=== PATIENT | male | born 1955 ===

== ENCOUNTER 2020-12-31 22:01 | Inpatient (IN) ==
[2020-12-31] MEDS ORDERED: DEXAMETHASONE 10 MG/ML VIAL IV ONE (22:34)
[2020-12-31] MEDS ORDERED: REMDESIVIR 200 MG in 0.9 % SODIUM CHLORIDE 250 ML IV ONE (22:34)
[2020-12-31 22:47] LABS: POC Blood Urea Nitrogen 21 mg/dL (6-20); POC CO2 23 mmol/L (22-30); POC Calcium, Ionized 1.05 mmEq/L (1.16-1.32); POC Chloride 98 mEq/L (96-108); POC Glucose, Random 150 mg/dL (70-105); POC Hematocrit 39 % (41-55); POC Potassium 3.5 mEql/L (3.3-5.1); POC Sodium 134 mEq/L (133-145)
[2020-12-31 23:21] LABS: Basophils # (Auto) 0.01 K/mcL (0.00-0.30); Basophils % (Auto) 0.1 % (0.0-2.0); Eosinophils # (Auto) 0 K/mcL (0.00-0.70); Eosinophils % (Auto) 0 % (0.0-7.0); Hemoglobin 13.6 g/dL (13.7-17.5); Lymphocytes # (Auto) 0.86 K/mcL (1.50-4.80); Mean Cell Volume 91.7 fL (80.0-100.0); Mean Platelet Volume 10.3 fL (7.4-10.4); Monocytes # (Auto) 0.59 K/mcL (0.10-0.90); Neutrophils % (Auto) 82.7 % (38.0-78.0); Platelet Count 117 K/mcL (140-440); RBC 4.36 M/mcL (4.63-6.08); Red Cell Distribution Width 13.7 % (11.5-14.5); WBC 8.4 K/mcL (4.5-11.0)
[2020-12-31 23:43] LABS: Lymphocytes % (Auto) 10.2 % (15.5-49.0)
--- NOTE | 2021-01-01 02:05 | XRay Report ---
CLINICAL INFORMATION: SOB COMPARISON: 10/16/2013 FINDINGS: The heart is mildly enlarged. Mediastinum and pulmonary vasculature are unremarkable. Moderate vague alveolar infiltrates are seen diffusely throughout both mid and lower lungs-more prominent on the right. Tiny right pleural effusion noted IMPRESSION: Moderate vague alveolar infiltrates both mid and lower lungs more prominent on the right. Consider aspiration or infection. Interpreted and Authenticated by: Seth Moore 01/01/21
--- NOTE | 2021-01-01 02:45 | Emergency Department Note ---
HPI General Chief complaint: Shortness of Breath/Dyspnea Stated complaint: SOB, is COVID + Time Seen by Provider: 12/31/20 22:34 Mode of arrival: wheelchair Limitations: no limitations History of Present Illness HPI Narrative: Narrative: Patient is a 65-year-old male who presented with chief complaint of shortness of breath. Patient has been having worsening shortness of breath over the past 5 to 6 days, with cough as well as some body aches and chills. He does found out that his is Covid positive, so he is concerned for the same with him. He denies any known pulmonary issues for himself, and otherwise denies headache, neck stiffness, chest pain, abdominal pain, changes in bowel movements or urinary symptoms. Upon arrival to the emergency department patient had a pulse ox in the 60s, with significant increased work of breathing. Patient was placed on a nonrebreather which did bring up his oxygenation is into the mid 90s on 15 L however his work of breathing did not improve. At this point we elected to place him on BiPAP for respiratory support. Related Data Previous Rx's Medication Instructions Recorded efinaconazole 10 % topical 1 applic TOPICAL QHS #8 ml 11/26/16 solution with applicator cyclobenzaprine 10 mg tablet 10 mg PO TID #90 tab 03/17/17 oxycodone 30 mg tablet 30 mg PO TID PRN #84 tab 03/17/17 Allergies Allergy/AdvReac Type Severity Reaction Status Date / Time NKDA Allergy Mild NONE Uncoded 01/31/16 10:44 Review of Systems ROS ROS Narrative: Narrative: All systems ED: reviewed and negative except as stated. [facility] Narrative Patient History Narrative: Narrative: Medical/Surgical/Family History All Active Problems (Updated 01/01/21 @ 06:45 by Wojciech Lund DO) COVID-19 (Acute) Hypoxia (Acute) Acute respiratory distress (Acute) Mediastinal lymphadenopathy (Chronic) Dental abscess (Acute) Erectile disorder, acquired, generalized, severe (Acute) Hepatitis C, chronic (Chronic) Back pain (Chronic) Medical History Back pain chronic Back pain with radiation Bladder cancer Bladder tumor Dental abscess Erectile disorder, acquired, generalized, severe Hematuria, gross Hepatitis C, chronic Hernia, inguinal, unilateral Mediastinal lymphadenopathy Nocturia Prostate cancer Surgical History H/O cystoscopy (10/18/13) H/O total cystectomy (11/06/13) by Dr. Weston History of back surgery lower History of back surgery 1st surgery 07/2001 Low back surgery on above dates and a cage put around L4-L5 History of bladder surgery (10/18/13) Transurethral Resection; Bladder Tumor History of surgery (10/12/13) Cystourethroscopy History of surgery (11/06/13) Bilateral pelvic lymph node dissection by Dr. Weston Family History Unknown Family history of malignant neoplasm Social History Smoking Status: Current every day smoker Alcohol Intake Frequency: a few times a month Substance Use: marijuana and other Exam Narrative Narrative: Narrative: Patient is laying in bed, answering questions appropriat dayna. Patient does appear to feel unwell. He has significant respiratory distress, as well as conversational dyspnea. General Limitations: no limitations Head Head: Present atraumatic and normocephalic Eye Eye: Present normal appearance, PERRL and EOMI; Absent scleral icterus and conjunctival injection ENT ENT: Present normal oropharynx and mucous membranes moist Neck Neck: Present full ROM and trachea midline; Absent tenderness and lymphadenopathy Chest Chest: Present symmetric chest wall rise Respiratory Respiratory: Present respiratory distress, rales/crackles, wheezes, accessory muscle use and other (Tachypnea); Absent stridor Cardiovascular Cardiovascular: Present regular rate and normal rhythm; Absent systolic murmur and diastolic murmur Adbominal Abdominal: Present soft; Absent tenderness, guarding, rebound, rigidity and mass Extremities Extremities: Absent pedal edema, pretibial edema and calf tenderness Back Back: Absent CVA tenderness (R), CVA tenderness (L) and spinous process tenderness Neurological Neurological: Present alert and oriented X3 Psychiatric Psychiatric: Present normal affect and normal mood Skin Skin: Present warm (WNL) and dry Course Vital Signs Vital signs: Vital Signs Temperature 100.5 F H 12/31/20 22:02 Pulse Rate 84 12/31/20 22:02 Respiratory Rate 40 H 12/31/20 22:02 Blood Pressure 132/74 12/31/20 22:02 Pulse Oximetry (%) 68 L 12/31/20 22:02 Temperature 100.5 F H 12/31/20 22:20 Pulse Rate 46 L 01/01/21 06:39 Respiratory Rate 27 H 01/01/21 06:39 Blood Pressure 110/79 01/01/21 06:31 Pulse Oximetry (%) 98 01/01/21 06:39 MDM MDM Narrative Medical decision making narrative: Narrative: Patient is a 65-year-old male presented with chief complaint of shortness of breath. Patient was severely hypoxic upon arrival, with significant increased work of breathing. We did start the patient on nonrebreather which did improve his oxygenation but did not improve his respirations, and thus we transitioned him to BiPAP. This does seem to have helped his breathing, and while he is still having increased work of breathing overall is much improved. Patient states he feels better overall. X-ray was consistent with likely Covid pneumonia, and rest of blood work overall was unremarkable. Concerning a significant increase of oxygenation requirements, patient was given Decadron and remdesivir, and plan will be to transfer to a higher level care facility that has ICU/PCU availability. Patient is agreeable to the plan at this time and has no further concerns or questions. Unfortunately there has been no available beds within 100s of miles of our facility thus far. We are currently on the wait list at multiple locations in multiple states. We will continue to work on transfer the patient, and patient will be signed out to the day physician for monitoring until final disposition and transport can occur. Patient currently is stable on BiPAP, with overall improved symptoms. Lab Data Result diagrams: 12/31/20 22:34 Labs: Lab Results 12/31/20 12/31/20 Range/Units 22:34 22:34 WBC 8.4 (4.5-11.0) K/mcL RBC 4.36 L (4.63-6.08) M/mcL Hgb 13.6 L (13.7-17.5) g/dL Hct 40.0 L (40.1-51.0) % POC Hct 39 L (41-55) % MCV 91.7 (80.0-100.0) fL MCH 31.2 (26.0-34.0) pg MCHC 34.0 (31.0-36.0) g/dL RDW 13.7 (11.5-14.5) % Plt Count 117 L (140-440) K/mcL MPV 10.3 (7.4-10.4) fL Neut % (Auto) 82.7 H (38.0-78.0) % Lymph % (Auto) 10.2 L (15.5-49.0) % [place] % (Auto) 7.0 (1.0-12.0) % Eos % (Auto) 0 (0.0-7.0) % Baso % (Auto) 0.1 (0.0-2.0) % Lymph # (Auto) 0.86 L (1.50-4.80) K/mcL [place] # (Auto) 0.59 (0.10-0.90) K/mcL Eos # (Auto) 0 (0.00-0.70) K/mcL Baso # (Auto) 0.01 (0.00-0.30) K/mcL Absolute Neutrophils 6.98 (1.80-8.00) K/mcL POC Sodium 134 (133-145) mEq/L POC Potassium 3.5 (3.3-5.1) mEql/L POC Chloride 98 (96-108) mEq/L POC Total CO2 23 (22-30) mmol/L POC BUN 21 H (6-20) mg/dL POC Creatinine 1.0 (0.6-1.2) mg/dL POC Glucose 150 H (70-105) mg/dL POC WB Ioniz Calcium 1.05 L (1.16-1.32) mmEq/L ED POC Tests ED POC Tests: MARÍA - SARS Antigen Positive Procedures Other Procedure: EKG shows rate of approximately 80 with a bigeminy type pattern and right bundle branch block. No obvious signs of ischemia noted. No previous to compare to. 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
--- NOTE | 2021-01-01 11:32 | Internal Med History&Physical ---
HPI History of Present Illness Patient information: Note initiated : 01/01/21 at 11:27 am Service Date, if different from initiated Date: [] Patient: Padilla Walters a 65 y/o M admitted on for SOB, is COVID +. Chief Complaint: [CoVID pneumonia] History of present illness: Mr. Walters is a 65 year old M history of bladder cancer, presenting with 3-day history of shortness of breath, nonproductive cough, and general body weakness. There is no prior similar episode. He is not being vaccinated against Covid pneumonia. Over the past 3 days, patient experienced shortness of breath, nonproductive cough, and general body weakness. He denies any sputum productions or respiratory wheezing. He denies any fever, shaking chills, or diaphoresis. He denies any GI symptoms such as nausea vomiting diarrhea constipation's. He denies any change in his appetite. Vital signs at ED presentation significant for pericardia heart rate in the 50s, tachypnea with rate of breathing up to the 30s, and oxygen saturations in the mid 80s on room air. Lack of leukocytosis with WBC 8.4. Rest of the labs otherwise unremarkable. Covid positive. Chest x-ray findings typical for Covid pneumonia. Constitutional Constitutional: Present weakness; Absent chills, excessive sweating, fatigue and fever(s) EENT Eyes: Absent blurry vision, change in vision, loss of vision and other visual disturbances Ears: Absent decreased hearing and tinnitus Nose, mouth and throat: Absent abnormal hearing, dry mouth, headache(s), nasal congestion and sore throat Cardiovascular Cardiovascular: Absent chest pain, chest pain at rest, edema, irregular heart rhythm and palpatations Respiratory Respiratory: Present dyspnea; Absent cough and wheezing Gastrointestinal Gastrointestinal: Absent abdominal pain, constipation, diarrhea, nausea and vomiting Musculoskeletal Musculoskeletal: Absent back pain, deformity, limited range of motion, muscle cramps, muscle weakness and numbness Integumentary Integumentary: Absent lesions, rash and wounds Neurological Neurological: Absent focal weakness, headache(s) and numbness Psychiatric Psychiatric: Absent anxiety, depression and hallucinations PFSH PFSH All Active Problems (Updated 01/01/21 @ 11:31 by Bar Hay MD) Thrombocytopenia (Acute) Anemia, normocytic normochromic (Acute) COVID-19 (Acute) Hypoxia (Acute) Acute respiratory distress (Acute) Mediastinal lymphadenopathy (Chronic) Dental abscess (Acute) Erectile disorder, acquired, generalized, severe (Acute) Hepatitis C, chronic (Chronic) Back pain (Chronic) Medical History Back pain chronic Back pain with radiation Bladder cancer Bladder tumor Dental abscess Erectile disorder, acquired, generalized, severe Hematuria, gross Hepatitis C, chronic Hernia, inguinal, unilateral Mediastinal lymphadenopathy Nocturia Prostate cancer Surgical History H/O cystoscopy (10/18/13) H/O total cystectomy (11/06/13) by Dr. Weston History of back surgery lower History of back surgery 1st surgery 07/2001 Low back surgery on above dates and a cage put around L4-L5 History of bladder surgery (10/18/13) Transurethral Resection; Bladder Tumor History of surgery (10/12/13) Cystourethroscopy History of surgery (11/06/13) Bilateral pelvic lymph node dissection by Dr. Weston Family History Unknown Family history of malignant neoplasm Social History marital status: occupational status: retired alcohol intake frequency: a few times a month substance use type: marijuana and other details: Medical marijuana prescribed by Dr. Foster MEDS/ALLERGIES Home Medications and Allergies Home Medications Medication Instructions Recorded Confirmed Type No Known Home Meds 01/01/21 01/01/21 History Allergies Allergy/AdvReac Type Severity Reaction Status Date / Time NKDA Allergy Mild NONE Uncoded 01/31/16 10:44 EXAM Constitutional Vitals: Temp Pulse Resp BP Pulse Ox 38.1 C H 58 L 26 H 109/70 88 L 12/31/20 22:20 01/01/21 11:26 01/01/21 11:26 01/01/21 11:16 01/01/21 11:26 General appearance: cooperative and mild distress Head Head exam: Present atraumatic and normocephalic Eye Eye exam: Present EOMI and PERRL ENT ENT exam: Present mucous membranes moist, normal exam and normal external ear exam Additional comments: BiPAP in place Neck Neck exam: Present normal inspection; Absent lymphadenopathy, tenderness and thyromegaly Respiratory Respiratory exam: Present rhonchi; Absent accessory muscle use, respiratory distress and wheezes Cardiovascular Cardiovascular exam: Present normal rate and rhythm; Absent JVD GI/Abdominal GI/Abdominal exam: Present normal bowel sounds and soft; Absent organomegaly and tenderness Rectal Rectal exam: Present deferred Extremities Exam Extremities exam: Present full ROM, normal capillary refill and normal inspection; Absent tenderness Neurological Exam Neurological exam: Present alert, CN II-XII intact and oriented X3; Absent motor sensory deficit Psychiatric Psychiatric exam: Present normal affect and normal mood; Absent anxious and depressed Skin Skin exam: Present dry and intact DATA Data Completed and Pending Labs: Labs from last 24 hours 12/31/20 12/31/20 22:34 22:34 WBC 8.4 RBC 4.36 L Hgb 13.6 L Hct 40.0 L POC Hct 39 L MCV 91.7 MCH 31.2 MCHC 34.0 RDW 13.7 Plt Count 117 L MPV 10.3 Neut % (Auto) 82.7 H Lymph % (Auto) 10.2 L [place] % (Auto) 7.0 Eos % (Auto) 0 Baso % (Auto) 0.1 Lymph # (Auto) 0.86 L [place] # (Auto) 0.59 Eos # (Auto) 0 Baso # (Auto) 0.01 Absolute Neutrophils 6.98 POC Sodium 134 POC Potassium 3.5 POC Chloride 98 POC Total CO2 23 POC BUN 21 H POC Creatinine 1.0 POC Glucose 150 H POC WB Ioniz Calcium 1.05 L A/P Assessment and plan (1) COVID-19: Status: Acute (2) Acute respiratory distress: Status: Acute (3) Bladder cancer: Status: Resolved (4) Anemia, normocytic normochromic: Status: Acute (5) Thrombocytopenia: Status: Acute Narrative A/P Narrative: Assessment and Plans: 1. CoVID pneumonia with acute respiratory failure: Admit to inpatient PCU BiPAP for the time being, titrate oxygen therapy to achieve spo2>=92% Isolation: airborne and contact Daily CXR Blood culture Inflammatory markers cbc w/ auto diff in the morning to trend WBC Remdesivir Dexamethasone Lovenox Tylenol PRN fever Robitussin DM PRN cough DuoNEB NEB PRN wheezing 2. Anemia, normocytic normochromic: cbc w/ auto diff in the morning to trend H/H; transfuse pRBC if hemoglobin <7.0, active bleeding, or symptomatic 3. Thrombocytopenia: cbc w/ auto diff in the morning to trend platelet level, transfuse plt if plt count <15, or active bleeding 4. h/o bladder cancer: Continue to monitor GI ppx: not currently indicated DVT ppx: Lovenox Code status: DNI DNR Prognosis: extremely guarded Disposition: inpatient PCU Time Spent With Patient Time: Total time spent is greater than 50% in coordination of care (as documented) at patient's floor/unit and/or counseling patient: Total time spent with greater than 50% in coordination of care (as documented) at patient's floor/unit and/or counseling patient:: Greater than 35 minutes
--- NOTE | 2021-01-01 13:01 | EKG ---
[facility] Test Date: 2020-12-31 Pat Name: Padilla Walters Department: ED Room: Gender: Male Multi Operation Machine Operator: chloe : [id number] Requested By: Wojciech Lund Order Number: [id number] Reading MD: Seth Hogan M.D. Measurements Intervals [place] Rate: 79 P: -73 [place]: 192 QRS: 260 QRSD: 171 T: 9 QT: 385 QTc: 442 Interpretive Statements Atrial fibrillation with controlled ventricular response RBBB and LAFB Electronically Signed On 01-01-2021 13:01:39 PDT by Seth Hogan M.D. /[id number]/[id number]
[2021-01-01] MEDS ORDERED: LACTULOSE 20 GM/30 ML ORAL.SOL PO PRN (13:04)
[2021-01-01] MEDS ORDERED: ONDANSETRON 4 MG/2 ML VIAL IV PRN (13:04)
[2021-01-01] MEDS ORDERED: IPRATROPIUM/ALBUTEROL 3 ML AMPUL.NEB NEB PRN (13:04)
[2021-01-01] MEDS ORDERED: SENNOSIDES 1 TABLET PO PRN (13:04)
[2021-01-01] MEDS ORDERED: REMDESIVIR 200 MG in 0.9 % SODIUM CHLORIDE 250 ML IV ONE (13:04)
[2021-01-01] MEDS: 0.9 % SODIUM CHLORIDE 10 ML SYRINGE IV SCH ×2 (14:06→20:18)
[2021-01-01] MEDS: REMDESIVIR 100 MG in 0.9 % SODIUM CHLORIDE 250 ML IV SCH (14:06)
--- NOTE | 2021-01-01 14:24 | XRay Report ---
CLINICAL INFORMATION: covid pneumonia COMPARISON: 12/31/2020 FINDINGS: The heart is mildly enlarged-unchanged. Mediastinum and pulmonary vasculature are unremarkable. Moderate vague alveolar infiltrates, diffusely throughout both mid and lower lungs, show modest improvement right. Tiny right pleural effusion noted IMPRESSION: Moderate vague alveolar infiltrates both mid and lower lungs more prominent on the right. Modest improvement yesterday. Interpreted and Authenticated by: Seth Moore 01/01/21
[2021-01-01 15:22] LABS: Prothrombin Time 14.1 sec (11.9-14.5)
[2021-01-01 15:43] LABS: C-Reactive Protein 11.8 mg/dL (0.03-0.80)
[2021-01-01 15:47] LABS: ALT/SGPT 23 U/L (<40); AST/SGOT 59 U/L (<40); Alkaline Phosphatase 57 U/L (39-117)
[2021-01-01] MEDS: ENOXAPARIN 40 MG/0.4 ML SYRINGE SQ SCH (20:17)
[2021-01-01] MEDS: DOCUSATE SODIUM 100 MG CAPSULE PO SCH ×2 (20:17→20:19)
[2021-01-02] MEDS: guaiFENesin/DEXTROMETHORPHAN ORAL SOL PO PRN ×3 (02:18→14:45)
[2021-01-02] MEDS: 0.9 % SODIUM CHLORIDE 10 ML SYRINGE IV SCH ×3 (05:57→21:35)
[2021-01-02 06:45] LABS: Basophils # (Auto) 0.01 K/mcL (0.00-0.30); Basophils % (Auto) 0.1 % (0.0-2.0); Eosinophils # (Auto) 0 K/mcL (0.00-0.70); Eosinophils % (Auto) 0 % (0.0-7.0); Hematocrit 38.5 % (40.1-51.0); Hemoglobin 12.9 g/dL (13.7-17.5); Lymphocytes # (Auto) 0.77 K/mcL (1.50-4.80); Lymphocytes % (Auto) 7.3 % (15.5-49.0); Mean Cell Volume 100.8 fL (80.0-100.0); Mean Corpuscular HGB Conc 33.5 g/dL (31.0-36.0); Mean Platelet Volume 10.3 fL (7.4-10.4); Monocytes # (Auto) 0.84 K/mcL (0.10-0.90); Monocytes % (Auto) 7.9 % (1.0-12.0); Neutrophils % (Auto) 84.7 % (38.0-78.0); Platelet Count 139 K/mcL (140-440); RBC 3.82 M/mcL (4.63-6.08); Red Cell Distribution Width 14.3 % (11.5-14.5); WBC 10.6 K/mcL (4.5-11.0)
[2021-01-02 07:14] LABS: ALT/SGPT 21 U/L (<40); AST/SGOT 46 U/L (<40); Alkaline Phosphatase 63 U/L (39-117); Bilirubin,Total 0.6 mg/dL (0.1-1.0); Blood Urea Nitrogen 21 mg/dL (8-23); Calcium 7.9 mg/dL (8.6-10.4); Carbon Dioxide 23 mmol/L (22-30); Chloride 99 mmol/L (96-108); Globulin 3.1 gm/dL (2.2-3.7); Glomerular Filtration Rate 104; Glucose 157 mg/dL (70-105)
--- NOTE | 2021-01-02 08:43 | Internal Med Progress Note ---
SUBJECTIVE Subjective Patient information: Note initiated : 01/02/21 at 8:41 am Service Date, if different from initiated Date: [] Patient: Padilla Walters a 65 y/o M admitted on 01/01/21 for SOB, is COVID +. Chief Complaint: [CoVID pneumonia] Interval history: History of present illness: Mr. Walters is a 65 year old M history of bladder cancer, presenting with 3-day history of shortness of breath, nonproductive cough, and general body weakness. There is no prior similar episode. He is not being vaccinated against Covid pneumonia. Over the past 3 days, patient experienced shortness of breath, nonproductive cough, and general body weakness. He denies any sputum productions or respiratory wheezing. He denies any fever, shaking chills, or diaphoresis. He denies any GI symptoms such as nausea vomiting diarrhea constipation's. He denies any change in his appetite. Vital signs at ED presentation significant for pericardia heart rate in the 50s, tachypnea with rate of breathing up to the 30s, and oxygen saturations in the mid 80s on room air. Lack of leukocytosis with WBC 8.4. Rest of the labs otherwise unremarkable. Covid positive. Chest x-ray findings typical for Covid pneumonia. 01/02: Afebrile overnight. Been switched from BiPAP to CPAP, current settings: [id number], FiO2 50%. Prone overnight and this morning. c/o SOB. Denies cough or sputum production or wheezing. Denies chest pain. Denies anxiety. Denies fever or c hills or sweating. Constitutional Vitals: Vital Signs Temp Pulse Resp BP Pulse Ox 36.9 C 64 34 H 103/75 93 01/02/21 08:01 01/02/21 08:17 01/02/21 08:17 01/02/21 08:01 01/02/21 08:20 Period Temp Pulse Resp BP Sys/Luna Pulse Ox Last 24 Hr 36.1 C-37.2 C 34-98 23-37 91-134/52-76 87-96 Intake and Output 01/01/21 01/02/21 01/02/21 21:59 05:59 13:59 Intake Total 1210 1920 Output Total 650 750 Balance 560 1170 Weight 104.78 kg Intake & Output: Intake & Output 01/01/21 01/02/21 01/02/21 21:59 05:59 13:59 Intake Total 1210 1920 Output Total 650 750 Balance 560 1170 Weight 104.78 kg Intake: IV 250 Veklury 100 mg In Sodium 250 Chloride 0.9% 250 ml @ 500 mls/ hr IV DAILY@1400 [facility] Rx#: [id number] Oral 960 1920 Output: Urine Catheter Amount 350 Void Amount 300 750 Other: Urine Appearance Cloudy Cloudy Urine Color Bright Yellow Bright Yellow Urine Odor Foul General appearance: cooperative and mild distress Exam: Prone Head Head exam: Present atraumatic and normocephalic Eye Eye exam: Present EOMI and PERRL ENT ENT exam: Present mucous membranes moist, normal exam and normal external ear exam Additional comments: CPAP in place Neck Neck exam: Present normal inspection; Absent lymphadenopathy, tenderness and thyromegaly Respiratory Respiratory exam: Present rhonchi; Absent accessory muscle use, respiratory distress and wheezes Cardiovascular Cardiovascular exam: Present normal rate and rhythm; Absent JVD GI/Abdominal GI/Abdominal exam: Present normal bowel sounds and soft; Absent organomegaly and tenderness Rectal Rectal exam: Present deferred Extremities Exam Extremities exam: Present full ROM, normal capillary refill and normal i nspection; Absent tenderness Neurological Exam Neurological exam: Present alert, CN II-XII intact and oriented X3; Absent motor sensory deficit Psychiatric Psychiatric exam: Present normal affect and normal mood; Absent anxious and depressed Skin Skin exam: Present dry and intact OBJ DATA Labs CBC & Chem 7: 01/02/21 05:39 01/02/21 05:39 Labs: Abnormal Lab Results 01/02/21 01/02/21 01/01/21 05:39 05:39 14:05 RBC 3.82 L Hgb 12.9 L Hct 38.5 L POC Hct MCV 100.8 H Plt Count 139 L Neut % (Auto) 84.7 H Lymph % (Auto) 7.3 L Lymph # (Auto) 0.77 L Absolute Neutrophils 8.95 H Fibrinogen 551 H D-Dimer 1.93 H POC BUN Creatinine 0.6 L Glucose 157 H POC Glucose Calcium 7.9 L POC WB Ioniz Calcium Ferritin AST 46 H Lactate Dehydrogenase C-Reactive Protein Albumin 3.0 L Procalcitonin 01/01/21 01/01/21 01/01/21 13:55 13:55 13:55 RBC Hgb Hct POC Hct MCV Plt Count Neut % (Auto) Lymph % (Auto) Lymph # (Auto) Absolute Neutrophils Fibrinogen D-Dimer POC BUN Creatinine Glucose POC Glucose Calcium POC WB Ioniz Calcium Ferritin 1237.0 H AST 59 H Lactate Dehydrogenase 689 H C-Reactive Protein 11.80 H Albumin Procalcitonin 0.23 H 12/31/20 12/31/20 22:34 22:34 RBC 4.36 L Hgb 13.6 L Hct 40.0 L POC Hct 39 L MCV Plt Count 117 L Neut % (Auto) 82.7 H Lymph % (Auto) 10.2 L Lymph # (Auto) 0.86 L Absolute Neutrophils Fibrinogen D-Dimer POC BUN 21 H Creatinine Glucose POC Glucose 150 H Calcium POC WB Ioniz Calcium 1.05 L Ferritin AST Lactate Dehydrogenase C-Reactive Protein Albumin Procalcitonin Meds: Medications Acetaminophen (Acetaminophen 325 Mg Tablet) 650 mg PO Q6HP PRN; Protocol PRN Reason: Per Pain Protocol/Fever > 101 Albuterol/Ipratropium (Ipratropium/Albuterol 3 Ml Ampul.Neb) 3 ml NEB Q4HRT PRN PRN Reason: Wheezing Dexamethasone (Dexamethasone 10 Mg/Ml Vial) 6 mg IV DAILY [facility] Docusate Sodium (Docusate Sodium 100 Mg Capsule) 100 mg PO BID [facility] Last Admin: 01/01/21 20:19 Dose: Not Given Documented by: Enoxaparin Sodium (Enoxaparin 40 Mg/0.4 Ml Syringe) 40 mg SQ BID [facility] Last Admin: 01/01/21 20:17 Dose: 40 mg Documented by: Guaifenesin (Guaifenesin/Dextromethorphan Oral Nita) 10 ml PO Q4HP PRN PRN Reason: Cough Last Admin: 01/02/21 02:18 Dose: 10 ml Documented by: REMDESIVIR 100 mg/ Sodium (Chloride) 250 mls @ 500 mls/hr IV DAILY@1400 [facility] Stop: 01/04/21 14:29 Last Infusion: 01/01/21 20:18 Dose: Infused Documented by: Lactulose (Lactulose 20 Gm/30 Ml Oral.Nita) 10 gm PO DAILYP PRN PRN Reason: Constipation Ondansetron HCl (Ondansetron 4 Mg/2 Ml Vial) 4 mg IV Q4HP PRN; Protocol PRN Reason: Nausea And Vomiting Senna (Sennosides 1 Tablet) 2 tab PO HSP PRN PRN Reason: Constipation Sodium Chloride (0.9 % Sodium Chloride 10 Ml Syringe) 10 ml IV Q8 KYLEIGH Last Admin: 01/02/21 05:57 Dose: 10 ml Documented by: A/P Assessment and plan (1) COVID-19: Status: Acute (2) Anemia, normocytic normochromic: Status: Acute (3) Thrombocytopenia: Status: Acute (4) Bladder cancer: Status: Resolved (5) Acute respiratory distress: Status: Acute Narrative A/P Narrative: Assessment and Plans: 1. CoVID pneumonia with acute respiratory failure: Stays in inpatient PCU CPAP for the time being, titrate oxygen therapy to achieve spo2>=92% Isolation: airborne and contact Daily CXR Blood culture, no growth to date Inflammatory markers cbc w/ auto diff in the morning to trend WBC Remdesivir Dexamethasone Lovenox Tylenol PRN fever Robitussin DM PRN cough DuoNEB NEB PRN wheezing 2. Anemia, normocytic normochromic: cbc w/ auto diff in the morning to trend H/H; transfuse pRBC if hemoglobin <7.0, active bleeding, or symptomatic 3. Thrombocytopenia: cbc w/ auto diff in the morning to trend platelet level, transfuse plt if plt count <15, or active bleeding 4. h/o bladder cancer: Continue to monitor GI ppx: not currently indicated DVT ppx: Lovenox Code status: Limited code: no chest compression Prognosis: extremely guarded Disposition: inpatient PCU Time Spent With Patient Time: Total time spent is greater than 50% in coordination of care (as documented) at patient's floor/unit and/or counseling patient: Total time spent with greater than 50% in coordination of care (as documented) at patient's floor/unit and/or counseling patient:: Greater than 35 minutes QUALITY VTE Deep Vein Thrombosis/Pulmonary Embolism Present on Admission: No
[2021-01-02] MEDS ORDERED: LORazepam 2 MG/ML VIAL IV PRN (08:44)
[2021-01-02] MEDS: ENOXAPARIN 40 MG/0.4 ML SYRINGE SQ SCH ×2 (08:47→21:35)
[2021-01-02] MEDS: DEXAMETHASONE 10 MG/ML VIAL IV SCH (08:47)
[2021-01-02] MEDS: ACETAMINOPHEN 325 MG TABLET PO PRN ×2 (08:48→14:50)
[2021-01-02] MEDS: DOCUSATE SODIUM 100 MG CAPSULE PO SCH ×2 (08:48→21:35)
--- NOTE | 2021-01-02 09:52 | XRay Report ---
CLINICAL INFORMATION: 92,021 follow-up Covid pneumonia COMPARISON: None. FINDINGS: The heart is mildly large but unchanged. Mediastinum and pulmonary vasculature are unremarkable. Moderate vague alveolar infiltrates, diffusely throughout both mid and lower lungs again noted. There is increasing density in the right mid and lower lung infiltrate since yesterday. No definite effusion. IMPRESSION: Moderate bilateral mid and lower lung infiltrates with increasing density in the right infiltrate since yesterday. Interpreted and Authenticated by: Seth Moore 01/02/21
[2021-01-02] MEDS: REMDESIVIR 100 MG in 0.9 % SODIUM CHLORIDE 250 ML IV SCH (14:30)
[2021-01-03] MEDS: guaiFENesin/DEXTROMETHORPHAN ORAL SOL PO PRN ×5 (03:01→23:51)
[2021-01-03] MEDS: 0.9 % SODIUM CHLORIDE 10 ML SYRINGE IV SCH ×3 (05:40→22:01)
--- NOTE | 2021-01-03 06:46 | XRay Report ---
CLINICAL INFORMATION: covid pneumonia COMPARISON: 01/02/2021 FINDINGS: Diffuse bilateral infiltrates show progression in extent and density since the exam yesterday. Findings compatible with Covid pneumonia. No effusion. Mild cardiomegaly is unchanged. Mediastinum and pulmonary vessels are normal. IMPRESSION: Diffuse bilateral infiltrates progressing in size and density from yesterday. Interpreted and Authenticated by: Seth Moore 01/03/21
--- NOTE | 2021-01-03 07:00 | EKG ---
[facility] Test Date: 2021-01-02 Pat Name: Padilla Walters Department: ICU Room: 120B Gender: Male Sales Administration Specialist: : [id number] Requested By: Bar Hay Order Number: [id number] Reading MD: Jorge Hobson Measurements Intervals [place] Rate: 45 P: IA: QRS: -88 QRSD: 162 T: -56 QT: 492 QTc: 426 Interpretive Statements ATRIAL FIBRILLATION RIGHT BUNDLE BRANCH BLOCK; LAFB Unchanged from prior Electronically Signed On 01-03-2021 6:59:04 PDT by Jorge Hobson /store/[email or web address]/[id number]/[id number].pdf
[2021-01-03 07:40] LABS: ALT/SGPT 21 U/L (<40); AST/SGOT 38 U/L (<40); Albumin 2.6 gm/dL (3.2-5.2); Albumin/Globulin Ratio 0.7 (1.0-2.3); Alkaline Phosphatase 69 U/L (39-117); Bilirubin,Total 0.7 mg/dL (0.1-1.0); Blood Urea Nitrogen 24 mg/dL (8-23); Calcium 8.3 mg/dL (8.6-10.4); Carbon Dioxide 25 mmol/L (22-30); Chloride 101 mmol/L (96-108); Globulin 3.7 gm/dL (2.2-3.7); Glomerular Filtration Rate 92; Glucose 164 mg/dL (70-105)
[2021-01-03] MEDS: ACETAMINOPHEN 325 MG TABLET PO PRN ×2 (07:49→20:29)
[2021-01-03 08:10] LABS: Basophils # (Auto) 0.03 K/mcL (0.00-0.30); Basophils % (Auto) 0.2 % (0.0-2.0); Eosinophils # (Auto) 0.02 K/mcL (0.00-0.70); Eosinophils % (Auto) 0.2 % (0.0-7.0); Hematocrit 40.6 % (40.1-51.0); Hemoglobin 12.9 g/dL (13.7-17.5); Lymphocytes # (Auto) 1.18 K/mcL (1.50-4.80); Lymphocytes % (Auto) 9.3 % (15.5-49.0); Mean Cell Volume 96.4 fL (80.0-100.0); Mean Corpuscular HGB Conc 31.8 g/dL (31.0-36.0); Mean Platelet Volume 10.9 fL (7.4-10.4); Monocytes # (Auto) 0.96 K/mcL (0.10-0.90); Monocytes % (Auto) 7.6 % (1.0-12.0); Neutrophils % (Auto) 82.7 % (38.0-78.0); Platelet Count 169 K/mcL (140-440); RBC 4.21 M/mcL (4.63-6.08); Red Cell Distribution Width 13.7 % (11.5-14.5); WBC 12.6 K/mcL (4.5-11.0)
--- NOTE | 2021-01-03 09:06 | Internal Med Progress Note ---
SUBJECTIVE Subjective Patient information: Note initiated : 01/03/21 at 9:03 am Service Date, if different from initiated Date: [] Patient: Padilla Walters a 65 y/o M admitted on 01/01/21 for SOB, is COVID +. Chief Complaint: [CoVID pneumonia] Interval history: History of present illness: Mr. Walters is a 65 year old M history of bladder cancer, presenting with 3-day history of shortness of breath, nonproductive cough, and general body weakness. There is no prior similar episode. He is not being vaccinated against Covid pneumonia. Over the past 3 days, patient experienced shortness of breath, nonproductive cough, and general body weakness. He denies any sputum productions or respiratory wheezing. He denies any fever, shaking chills, or diaphoresis. He denies any GI symptoms such as nausea vomiting diarrhea constipation's. He denies any change in his appetite. Vital signs at ED presentation significant for pericardia heart rate in the 50s, tachypnea with rate of breathing up to the 30s, and oxygen saturations in the mid 80s on room air. Lack of leukocytosis with WBC 8.4. Rest of the labs otherwise unremarkable. Covid positive. Chest x-ray findings typical for Covid pneumonia. 01/02: Afebrile overnight. Been switched from BiPAP to CPAP, current settings: [id number], FiO2 50%. Prone overnight and this morning. c/o SOB. Denies cough or sputum production or wheezing. Denies chest pain. Denies anxiety. Denies fever or c hills or sweating. 01/03: Been prone 5 hours overnight. Afebrile. Oxygen requirement down to 7L/min overnight and this morning. Improving severity of SOB. c/o nonproductive cough without sputum production. Denies wheezing. Denies chest pain or palpitation. Denies fever, chills, or sweating. Constitutional Vitals: Vital Signs Temp Pulse Resp BP Pulse Ox 36.6 C 52 L 22 100/66 94 01/03/21 02:55 01/03/21 08:11 01/03/21 08:11 01/03/21 07:02 01/03/21 08:11 Period Temp Pulse Resp BP Sys/Luna Pulse Ox Last 24 Hr 35.9 C-36.6 C 33-101 15-36 94-131/50-77 88-100 Intake and Output 01/02/21 01/03/21 01/03/21 21:59 05:59 13:59 Intake Total 1407 800 80 Output Total 1275 500 375 Balance 132 300 -295 Weight 100.516 kg Intake & Output: Intake & Output 01/02/21 01/03/21 01/03/21 21:59 05:59 13:59 Intake Total 1407 800 80 Output Total 1275 500 375 Balance 132 300 -295 Weight 100.516 kg Intake: Nourishment/Supplement quantity 237 (ml) IV 250 Veklury 100 mg In Sodium 250 Chloride 0.9% 250 ml @ 500 mls/ hr IV DAILY@1400 [facility] Rx#: [id number] Oral 920 800 80 Output: Urine Catheter Amount 375 Void Amount 1275 500 Other: Meal Dinner Percent of Meal Consumed 75% Feeding Ability Assist with Tray Set Up Nourishment/Supplement name Ensure Urine Appearance Clear Clear Urine Color Pale Bright Yellow Dark Yellow Urine Odor Foul Stool Size Moderate Stool Color Brown Stool Consistency Soft Formed # Bowel Movements 1 General appearance: cooperative and no acute distress Exam: Prone Head Head exam: Present atraumatic and normocephalic Eye Eye exam: Present EOMI and PERRL ENT ENT exam: Present mucous membranes moist, normal exam and normal external ear exam Additional comments: Nasal cannula in place Neck Neck exam: Present normal inspection; Absent lymphadenopathy, tenderness and thyromegaly Respiratory Respiratory exam: Present rhonchi; Absent accessory muscle use, respiratory distress and wheezes Cardiovascular Cardiovascular exam: Present normal rate and rhythm; Absent JVD GI/Abdominal GI/Abdominal exam: Present normal bowel sounds and soft; Absent organomegaly and tenderness Rectal Rectal exam: Present deferred Extremities Exam Extremities exam: Present full ROM, normal capillary refill and normal inspection; Absent tenderness Neurological Exam Neurological exam: Present alert, CN II-XII intact and oriented X3; Absent motor sensory deficit Psychiatric Psychiatric exam: Present normal affect and normal mood; Absent anxious and depressed Skin Skin exam: Present dry and intact OBJ DATA Labs CBC & Chem 7: 01/03/21 05:53 01/03/21 05:53 Labs: Abnormal Lab Results 01/03/21 01/03/21 01/02/21 05:53 05:53 05:39 WBC 12.6 H RBC 4.21 L Hgb 12.9 L Hct POC Hct MCV Plt Count MPV 10.9 H Neut % (Auto) 82.7 H Lymph % (Auto) 9.3 L Lymph # (Auto) 1.18 L [place] # (Auto) 0.96 H Absolute Neutrophils 10.45 H Fibrinogen D-Dimer POC BUN BUN 24 H Creatinine 0.6 L Glucose 164 H 157 H POC Glucose Calcium 8.3 L 7.9 L POC WB Ioniz Calcium Ferritin AST 46 H Lactate Dehydrogenase C-Reactive Protein Albumin 2.6 L 3.0 L Albumin/Globulin Ratio 0.7 L Procalcitonin 01/02/21 01/01/21 01/01/21 05:39 14:05 13:55 WBC RBC 3.82 L Hgb 12.9 L Hct 38.5 L POC Hct MCV 100.8 H Plt Count 139 L MPV Neut % (Auto) 84.7 H Lymph % (Auto) 7.3 L Lymph # (Auto) 0.77 L [place] # (Auto) Absolute Neutrophils 8.95 H Fibrinogen 551 H D-Dimer 1.93 H POC BUN BUN Creatinine Glucose POC Glucose Calcium POC WB Ioniz Calcium Ferritin AST 59 H Lactate Dehydrogenase C-Reactive Protein Albumin Albumin/Globulin Ratio Procalcitonin 01/01/21 01/01/21 12/31/20 13:55 13:55 22:34 WBC RBC Hgb Hct POC Hct 39 L MCV Plt Count MPV Neut % (Auto) Lymph % (Auto) Lymph # (Auto) [place] # (Auto) Absolute Neutrophils Fibrinogen D-Dimer POC BUN 21 H BUN Creatinine Glucose POC Glucose 150 H Calcium POC WB Ioniz Calcium 1.05 L Ferritin 1237.0 H AST Lactate Dehydrogenase 689 H C-Reactive Protein 11.80 H Albumin Albumin/Globulin Ratio Procalcitonin 0.23 H 12/31/20 22:34 WBC RBC 4.36 L Hgb 13.6 L Hct 40.0 L POC Hct MCV Plt Count 117 L MPV Neut % (Auto) 82.7 H Lymph % (Auto) 10.2 L Lymph # (Auto) 0.86 L [place] # (Auto) Absolute Neutrophils Fibrinogen D-Dimer POC BUN BUN Creatinine Glucose POC Glucose Calcium POC WB Ioniz Calcium Ferritin AST Lactate Dehydrogenase C-Reactive Protein Albumin Albumin/Globulin Ratio Procalcitonin Meds: Medications Acetaminophen (Acetaminophen 325 Mg Tablet) 650 mg PO Q6HP PRN; Protocol PRN Reason: Per Pain Protocol/Fever > 101 Last Admin: 01/03/21 07:49 Dose: 650 mg Documented by: Albuterol/Ipratropium (Ipratropium/Albuterol 3 Ml Ampul.Neb) 3 ml NEB Q4HRT PRN PRN Reason: Wheezing Dexamethasone (Dexamethasone 10 Mg/Ml Vial) 6 mg IV DAILY [facility] Last Admin: 01/02/21 08:47 Dose: 6 mg Documented by: Docusate Sodium (Docusate Sodium 100 Mg Capsule) 100 mg PO BID [facility] Last Admin: 01/02/21 21:35 Dose: 100 mg Documented by: Enoxaparin Sodium (Enoxaparin 40 Mg/0.4 Ml Syringe) 40 mg SQ BID [facility] Last Admin: 01/02/21 21:35 Dose: 40 mg Documented by: Guaifenesin (Guaifenesin/Dextromethorphan Oral Nita) 10 ml PO Q4HP PRN PRN Reason: Cough Last Admin: 01/03/21 07:03 Dose: 10 ml Documented by: REMDESIVIR 100 mg/ Sodium (Chloride) 250 mls @ 500 mls/hr IV DAILY@1400 [facility] Stop: 01/04/21 14:29 Last Infusion: 01/02/21 15:00 Dose: Infused Documented by: Lactulose (Lactulose 20 Gm/30 Ml Oral.Nita) 10 gm PO DAILYP PRN PRN Reason: Constipation Lorazepam (Lorazepam 2 Mg/Ml Vial) 1 mg IV Q4-6HP PRN PRN Reason: ANXIETY/SEDATION Ondansetron HCl (Ondansetron 4 Mg/2 Ml Vial) 4 mg IV Q4HP PRN; Protocol PRN Reason: Nausea And Vomiting Senna (Sennosides 1 Tablet) 2 tab PO HSP PRN PRN Reason: Constipation Sodium Chloride (0.9 % Sodium Chloride 10 Ml Syringe) 10 ml IV Q8 [facility] Last Admin: 01/03/21 05:40 Dose: 10 ml Documented by: A/P Assessment and plan (1) COVID-19: Status: Acute (2) Anemia, normocytic normochromic: Status: Acute (3) Thrombocytopenia: Status: Acute (4) Bladder cancer: Status: Resolved (5) Acute respiratory distress: Status: Acute Narrative A/P Narrative: Assessment and Plans: 1. CoVID pneumonia with acute respiratory failure: Stays in inpatient PCU Supplemental oxygen, titrate oxygen therapy to achieve spo2>=92% Isolation: airborne and contact Daily CXR Blood culture, no growth to date Inflammatory markers cbc w/ auto diff in the morning to trend WBC Remdesivir Dexamethasone Lovenox Tylenol PRN fever Robitussin DM PRN cough DuoNEB NEB PRN wheezing 2. Anemia, normocytic normochromic: cbc w/ auto diff in the morning to trend H/H; transfuse pRBC if hemoglobin <7.0, active bleeding, or symptomatic 3. Thrombocytopenia: cbc w/ auto diff in the morning to trend platelet level, transfuse plt if plt count <15, or active bleeding 4. h/o bladder cancer: Continue to monitor GI ppx: not currently indicated DVT ppx: Lovenox Code status: Limited code: no chest compression Prognosis: guarded Disposition: inpatient PCU Time Spent With Patient Time: Total time spent is greater than 50% in coordination of care (as documented) at patient's floor/unit and/or counseling patient: QUALITY VTE Deep Vein Thrombosis/Pulmonary Embolism Present on Admission: No
[2021-01-03] MEDS: DEXAMETHASONE 10 MG/ML VIAL IV SCH (09:14)
[2021-01-03] MEDS: ENOXAPARIN 40 MG/0.4 ML SYRINGE SQ SCH ×2 (09:14→20:29)
[2021-01-03] MEDS: DOCUSATE SODIUM 100 MG CAPSULE PO SCH ×2 (09:15→20:29)
[2021-01-03] MEDS: REMDESIVIR 100 MG in 0.9 % SODIUM CHLORIDE 250 ML IV SCH (14:02)
[2021-01-04] MEDS: ACETAMINOPHEN 325 MG TABLET PO PRN ×2 (02:47→08:27)
[2021-01-04] MEDS: 0.9 % SODIUM CHLORIDE 10 ML SYRINGE IV SCH ×2 (05:54→13:52)
[2021-01-04 07:09] LABS: ALT/SGPT 17 U/L (<40); AST/SGOT 24 U/L (<40); Albumin 2.8 gm/dL (3.2-5.2); Albumin/Globulin Ratio 0.8 (1.0-2.3); Alkaline Phosphatase 68 U/L (39-117); Bilirubin,Total 0.7 mg/dL (0.1-1.0); Blood Urea Nitrogen 22 mg/dL (8-23); Calcium 8.4 mg/dL (8.6-10.4); Carbon Dioxide 25 mmol/L (22-30); Chloride 102 mmol/L (96-108); Globulin 3.6 gm/dL (2.2-3.7); Glomerular Filtration Rate 97; Glucose 155 mg/dL (70-105)
[2021-01-04 08:07] LABS: Basophils # (Auto) 0.05 K/mcL (0.00-0.30); Basophils % (Auto) 0.4 % (0.0-2.0); Eosinophils # (Auto) 0 K/mcL (0.00-0.70); Eosinophils % (Auto) 0 % (0.0-7.0); Hematocrit 42.5 % (40.1-51.0); Hemoglobin 13.7 g/dL (13.7-17.5); Lymphocytes % (Auto) 9.9 % (15.5-49.0); Mean Cell Volume 95.9 fL (80.0-100.0); Mean Corpuscular HGB Conc 32.2 g/dL (31.0-36.0); Mean Platelet Volume 10.5 fL (7.4-10.4); Monocytes # (Auto) 0.96 K/mcL (0.10-0.90); Monocytes % (Auto) 7.3 % (1.0-12.0); Neutrophils % (Auto) 82.4 % (38.0-78.0); Platelet Count 198 K/mcL (140-440); RBC 4.43 M/mcL (4.63-6.08); Red Cell Distribution Width 13.5 % (11.5-14.5); WBC 13.1 K/mcL (4.5-11.0)
[2021-01-04] MEDS: ENOXAPARIN 40 MG/0.4 ML SYRINGE SQ SCH (08:27)
[2021-01-04] MEDS: DOCUSATE SODIUM 100 MG CAPSULE PO SCH (08:27)
[2021-01-04] MEDS: guaiFENesin/DEXTROMETHORPHAN ORAL SOL PO PRN (08:28)
[2021-01-04] MEDS: DEXAMETHASONE 10 MG/ML VIAL IV SCH (08:28)
--- NOTE | 2021-01-04 08:30 | XRay Report ---
HISTORY: Follow-up Covid pneumonia FINDINGS: Moderately severe diffuse infiltrates are present throughout both lungs. These have improved since 01/03/21. There is no pneumothorax or pleural effusion. The heart remains borderline enlarged. Pulmonary vessels are obscured by the infiltrates. IMPRESSION: Improving pneumonia Interpreted and Authenticated by: Ayo Hogan 01/04/21
--- NOTE | 2021-01-04 10:02 | Discharge Summary ---
Discharge Provider Provider Patient information: Note initiated : 01/04/21 at 9:58 am Service Date, if different from initiated Date: [] Patient: Padilla Walters 65 y/o M admitted on 01/01/21 for SOB, is COVID +. Chief Complaint: [CoVID pneumonia] Date of admission: 01/01/21 12:52 Discharge date: 01/04/21 Primary care physician: PCP No Consults: 01/01/21 10:57 Consult to Physician [CONS] Stat Comment: Consulting Provider: Bar Hay Reason For Exam: Physician to Consult Discharge Meds Discharge Medications Home Medications dextromethorphan-guaifenesin [Robafen DM Cough] 10 ml PO Q4HP PRN #500 ml 01/04 [Rx Last Taken Unknown] COURSE Hospital Course Hospital course: Patient was admitted on 01/01/2021 for Covid pneumonia. Supplemental oxygen for symptoms of high flow oxygen's and subsequently downgraded to simple nasal cannula oxygen's, remdesivir, dexamethasone, and anticoagulations in terms of Lovenox were all given as part of standard Covid therapy. Patient had a uneventful course of recovery and by January 04, patient's has achieved clinical stability, oxygen requirement currently 2 to 4 L/min, has been afebrile for 24 hours, and just reached clinical stability. The decision was thus made to discharge patient home with with instructions to follow-up with PCP in 1 to 2 weeks given to patient. All questions were answered prior to patient being physically discharged. Patient were to be discharged with home oxygen therapy Discharge diagnosis: CoVID pneumonia Time Spent with Patient Time attestation: Total time spent providing and/or coordinating discharge services: Patient was admitted on 01/01/2021 for Covid pneumonia. Supplemental oxygen for symptoms of high flow oxygen's and subsequently downgraded to simple nasal cannula oxygen's, remdesivir, dexamethasone, and anticoagulations in terms of Lovenox were all given as part of standard Covid therapy. Patient had a uneventful course of recovery and by January 04, patient's has achieved clinical stability, oxygen requirement currently 2 to 4 L/min, has been afebrile for 24 hours, and just reached clinical stability. The decision was thus made to discharge patient home with with instructions to follow-up with PCP in 1 to 2 weeks given to patient. All questions were answered prior to patient being physically discharged. Patient were to be discharged with home oxygen therapy EXAM Constitutional Vitals: Temp Pulse Resp BP Pulse Ox 36.1 C 48 L 19 115/69 97 01/04/21 08:01 01/04/21 08:01 01/04/21 08:01 01/04/21 08:01 01/04/21 08:01 General appearance: cooperative and no acute distress Head Head exam: Present atraumatic and normocephalic Eye Eye exam: Present EOMI and PERRL ENT ENT exam: Present mucous membranes moist, normal exam and normal external ear exam Additional comments: Nasal cannula in place Neck Neck exam: Present normal inspection; Absent lymphadenopathy, tenderness and thyromegaly Respiratory Respiratory exam: Present rhonchi; Absent accessory muscle use, respiratory distress and wheezes Cardiovascular Cardiovascular exam: Present normal rate and rhythm; Absent JVD GI/Abdominal GI/Abdominal exam: Present normal bowel sounds and soft; Absent organomegaly and tenderness Rectal Rectal exam: Present deferred Extremities Exam Extremities exam: Present full ROM, normal capillary refill and normal inspection; Absent tenderness Neurological Exam Neurological exam: Present alert, CN II-XII intact and oriented X3; Absent motor sensory deficit Psychiatric Psychiatric exam: Present normal affect and normal mood; Absent anxious and depressed Skin Skin exam: Present dry and intact Discharge Data Data Completed and Pending Labs on day of discharge: Labs from last 24 hours 01/04/21 01/04/21 05:39 05:39 WBC 13.1 H RBC 4.43 L Hgb 13.7 Hct 42.5 MCV 95.9 MCH 30.9 MCHC 32.2 RDW 13.5 Plt Count 198 MPV 10.5 H Neut % (Auto) 82.4 H Lymph % (Auto) 9.9 L [place] % (Auto) 7.3 Eos % (Auto) 0 Baso % (Auto) 0.4 Lymph # (Auto) 1.30 L [place] # (Auto) 0.96 H Eos # (Auto) 0 Baso # (Auto) 0.05 Absolute Neutrophils 10.81 H Sodium 138 Potassium 4.2 Chloride 102 Carbon Dioxide 25 Anion Gap 11.0 BUN 22 Creatinine 0.7 GFR Calculation 97 Glucose 155 H Calcium 8.4 L Magnesium 2.0 Total Bilirubin 0.7 AST 24 ALT 17 Alkaline Phosphatase 68 Total Protein 6.4 Albumin 2.8 L Globulin 3.6 Albumin/Globulin Ratio 0.8 L Preliminary micro results at discharge 01/01/21 14:05 Blood Culture - Preliminary Blood 01/01/21 13:55 Blood Culture - Preliminary Blood Discharge Plan Patient/Caregiver Discharge Instructions Activity: increase activity as tolerated Diet: Regular Diet Prescriptions: New dextromethorphan-guaifenesin [Robafen DM Cough] 10-100 mg/5 mL Liquid 10 ml PO Q4HP PRN (Reason: Cough) Qty: 500 RF: 0 Follow Up Plan Follow up with: Marita Kim, KYRIE [Emergency Nurse] - No,PCP [Primary Care Provider] - Patient Disposition: Home, Self-Care Rehab Potential: Good I certify that the patient requires SNF services: No Overall status at discharge: patient is progressing back to baseline Discharge Orders: Discharge Order (Routine); Ordered 01/04/21 Ordered By: Bar MANZANO VTE Deep Vein Thrombosis/Pulmonary Embolism Present on Admission: No
[2021-01-04] MEDS: REMDESIVIR 100 MG in 0.9 % SODIUM CHLORIDE 250 ML IV SCH (13:51)
[2021-01-04 13:53] LABS: Appearance,Urine HAZY (Clear); Bacteria,Urine FEW /hpf (0); Bilirubin,Urine Negative (Negative); Color,Urine YELLOW; Culture Indicated,Urine yes; Glucose,Urine (UA) Negative (Negative); Ketones,Urine Negative (Negative); Leukocyte Esterase,Urine 25 /ug (Negative); Mucus,Urine FEW /hpf; Nitrate,Urine Negative (Negative); Protein,Urine Negative (Negative); Specific Gravity,Urine 1.019 (1.000-1.035); Urine Blood Negative (Negative); Urine RBC 9 /hpf (0-3); Urine Squamous Epithelial Cell < 1 /hpf (0-4); Urine Transitional Epi Cells 2 /hpf (0-2); Urine WBC 65 /hpf (0-4); Urobilinogen,Urine Negative
== END 2021-01-04 15:35 | disposition home or self-care (01) | DRG 177 ==
LOC: ED 22:01 → ICU 01-01 12:45
PROVIDERS: ADMIT Internal Medicine; ATTEND Internal Medicine